=== PATIENT | male | born 1980 | race Caucasian/White ===

== ENCOUNTER 2021-07-05 13:36 | Emergency (ER) | payer BC ==
[~2021-07-05] VITALS: Ht 195.6 cm; Wt 104.3 kg
[~2021-07-05 13:36] MED LIST: HYDACE5325 PO; ONDA8ODT MM; OTC COLD MEDS; OXYACE5T PO; OXYASA5T PO; PROM25 PO; TAMS.4ER PO; TYLENOL; [UNRECOGNIZED DRUG - OTHER]
== END 2021-07-05 16:04 | disposition home or self-care (01) ==
LOC: ER 13:36
DX: S01.01XA Laceration without foreign body of scalp, initial encounter (principal); W22.09XA Striking against other stationary object, initial encounter; Z79.899 Other long term (current) drug therapy
CPT/HCPCS: 12002; 99282-25